=== PATIENT | female | born 1940 | race Caucasian/White ===

== ENCOUNTER 2016-07-07 09:05 | Outpatient (CLI) | payer OTHER, MEDICAID ==
[2016-07-07] MEDS ORDERED: BARIUM SULFATE 135 ML SUSP.RECON (E-Z-HD) PO ONE (10:09)
== END 2016-07-07 19:42 | disposition home or self-care (01) ==
LOC: SRD 09:05
PROVIDERS: ATTEND Otolaryngology
DX: R13.10 Dysphagia, unspecified (principal)
CPT/HCPCS: 74230; 92611-GN

== ENCOUNTER 2018-03-13 11:47 | Outpatient (CLI) | payer OTHER, MEDICAID ==
[2018-03-13 13:09] LABS: ANION GAP 8 (5-15); CALCIUM 9.6 mg/dL (8.4-11.0); CHLORIDE 99 mmol/L (98-107); CREATININE 0.77 mg/dL (0.55-1.30); GLUCOSE 90 mg/dL (70-99); POTASSIUM 3.4 mmol/L (3.5-5.1); SODIUM SERUM 135 mmol/L (136-145); UREA NITROGEN, BLOOD 14 mg/dL (8-21)
== END 2018-03-13 20:38 | disposition home or self-care (01) ==
LOC: SRD 11:47 → SLB 20:38
PROVIDERS: ATTEND Urology
DX: R31.0 Gross hematuria (principal)
CPT/HCPCS: 36415; 80048; 87086; 88108

== ENCOUNTER 2018-03-14 08:50 | Outpatient (CLI) | payer OTHER, MEDICAID ==
[2018-03-14] MEDS ORDERED: IOHEXOL 100 ML IV ONE (09:14)
== END 2018-03-14 13:00 | disposition home or self-care (01) ==
LOC: SCT 08:50
PROVIDERS: ATTEND Urology
DX: K57.90 Diverticulosis of intestine, part unspecified, without perforation or abscess without bleeding (principal); I70.8 Atherosclerosis of other arteries
CPT/HCPCS: 74178; Q9967

== ENCOUNTER 2018-04-10 10:06 | Outpatient (CLI) | payer OTHER, MEDICAID ==
[2018-04-10] MEDS ORDERED: IOHEXOL 100 ML IV ONE (10:40)
[2018-04-10 10:53] LABS: ANION GAP 7 (5-15); CALCIUM 9.8 mg/dL (8.4-11.0); CHLORIDE 97 mmol/L (98-107); CREATININE 1.11 mg/dL (0.55-1.30); GLUCOSE 118 mg/dL (70-99); POTASSIUM 3.4 mmol/L (3.5-5.1); SODIUM SERUM 133 mmol/L (136-145); UREA NITROGEN, BLOOD 31 mg/dL (8-21)
== END 2018-04-10 19:48 | disposition home or self-care (01) ==
LOC: SRD 10:06
PROVIDERS: ATTEND Urology
DX: C67.0 Malignant neoplasm of trigone of bladder (principal); I70.8 Atherosclerosis of other arteries; K82.8 Other specified diseases of gallbladder
CPT/HCPCS: 36415; 71260; 80048; Q9967

== ENCOUNTER 2018-04-11 10:22 | Outpatient (CLI) | payer OTHER, MEDICAID | END 2018-04-11 19:57 | disposition home or self-care (01) | LOC: SNM 10:22 | PROVIDERS: ATTEND Family Medicine | DX: C67.0 Malignant neoplasm of trigone of bladder (principal) | CPT/HCPCS: 78306; A9503 ==